=== PATIENT | male | born 1995 | race African-American/Black ===

== ENCOUNTER 2017-06-16 23:08 | Emergency (ER) | payer OTHER ==
[2017-06-16 23:24] VITALS: BP 140/79; PULSE 60; TEMP 98.2; BMI 26.6
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
[2017-06-17 01:33] LABS: BASOPHIL 0.7 % (0-2.0); EOSINOPHIL 2.9 % (0-4.5); MCH 29.1 pg (25.7-33.7); MCHC 33.7 g/dl (32.0-35.9); MEAN CELL VOLUME 86.2 fl (80-96); MEAN PLT VOLUME 8.5 fl (7.5-11.1); NEUTROPHILS 67.1 % (42.8-82.8); PLATELET COUNT 261 K/MM3 (134-434); RDW 13.3 % (11.9-15.9); WHITE BLOOD COUNT 5.3 K/mm3 (4.0-10.0)
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
[2017-06-17 02:03] LABS: ALBUMIN 3.8 g/dl (3.4-5.0); ALK PHOS 85 U/L (45-117); ANION GAP 7 (8-16); BILIRUBIN,TOTAL 0.7 mg/dL (0.2-1.0); CALCIUM 8.3 mg/dL (8.5-10.1); CO2 30 mmol/L (21-32); GLUCOSE,RANDOM 101 mg/dL (74-106); SGOT/AST 22 U/L (15-37); SGPT/ALT 60 U/L (12-78); TOT PROT 6.4 g/dl (6.4-8.2)
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
[2017-06-17] MEDS ORDERED: IBUPROFEN 400 MG TABLET (FP) PO ONE ×2 (02:44→02:51)
== END 2017-06-17 03:05 ==
LOC: JER 23:08
CPT/HCPCS: 36415; 70450-TC; 71250-TC; 72100-TC; 72125-TC; 72170-TC; 73030-TC-LT; 73562-TC-LT; 80053; 80307; 85025; 99285-25

== ENCOUNTER 2018-12-14 16:06 | Emergency (ER) | payer OTHER ==
[2018-12-14 16:23] VITALS: BP 134/70; BMI 26.6
--- NOTE | 2018-12-14 16:26 | PDOC ---
Rapid Medical Evaluation Chief Complaint: Cold Symptoms Medical Evaluation: Allergies Allergy/AdvReac Type Severity Reaction Status Date / Time No Known Allergies Allergy Verified 06/16/17 23:20 12/14/18 16:25 I have performed a brief in-person evaluation of this patient. The patient presents with a chief complaint of:fevers/ cough Pertinent physical exam findings: pain / moist cough/ fevers I have ordered the following: Influenza, given 1000mg tylenol The patient will proceed to the ED for further evaluation. 12/14/18 16:27 12/14/18 16:27 Discharge Disposition - Diagnosis Cough - Referrals - Patient Instructions - Post Discharge Activity
[2018-12-14] MEDS ORDERED: IBUPROFEN 600 MG TABLET (FP) PO ONE ×2 (16:39→16:58)
--- NOTE | 2018-12-14 16:39 | PDOC ---
History of Present Illness - General Chief Complaint: Cold Symptoms Stated Complaint: LIGHT HEADED FLASHES FEVER Time Seen by Provider: 12/14/18 16:29 History Source: Patient - History of Present Illness Initial Comments: 12/14/18 18:04 23-year-old male complaining of fever, cough, body aches, wheezing for 1 day. Denies nausea, vomiting, diarrhea, abdominal pain, ear pain. Patient reports that he has been taking asthma pump with minimal relief. Patient has a past medical history of asthma. Denies admission for asthma. Past History - Past History Allergies/Adverse Reactions: Allergies No Known Allergies Allergy (Verified 12/14/18 16:23) Home Medications: Ambulatory Orders Oseltamivir Phosphate [Tamiflu] 75 mg PO BID #10 capsule 12/14/18 - Social History Smoking Status: Never smoked Review of Systems - Review of Systems Able to Perform ROS?: Yes Is the patient limited Divehi proficient: No Constitutional: Yes: Fever HEENTM: Yes: Nose Congestion Respiratory: Yes: Cough, Wheezing Cardiac (ROS): No: Symptoms Reported, See HPI, Chest Pain, Edema, Irregular Heart Rate, Lightheadedness, Palpitations, Syncope, Chest Tightness, Other ABD/GI: No: Symptoms Reported, See HPI, Abdominal Distended, Abd. Pain w/ defecation, Blood Streaked Bowels, Constipated, Diarrhea, Difficulty Swallowing , Nausea, Poor Appetite, Poor Fluid Intake, Rectal Bleeding, Vomiting, Indigestion, Abdominal cramping, Tarry Stools, Other *Physical Exam - Vital Signs Last Vital Signs Temp Pulse Resp BP Pulse Ox 102.6 F H 103 H 16 134/70 100 12/14/18 16:20 12/14/18 16:20 12/14/18 16:20 12/14/18 16:20 12/14/18 16:20 - Physical Exam General Appearance: Yes: Appropriately Dressed Respiratory/Chest: positive: Wheezing Cardiovascular: positive: Tachycardia Gastrointestinal/Abdominal: positive: Normal Bowel Sounds, Soft. negative: Tender Musculoskeletal: positive: Normal Inspection Extremity: positive: Normal Capillary Refill, Normal Inspection, Normal Range of Motion Integumentary: positive: Normal Color, Dry, Warm Neurologic: positive: Fully Oriented, Alert, Normal Mood/Affect Moderate Sedation - Procedure Monitoring Vital Signs: Procedure Monitoring Vital Signs Temperature 102.6 F H 12/14/18 16:20 Pulse Rate 103 H 02/07/19 16:20 Respiratory Rate 16 12/14/18 16:20 Blood Pressure 134/70 12/14/18 16:20 O2 Sat by Pulse Oximetry (%) 100 12/14/18 16:20 Progress Note - Progress Note Progress Note: influenza A; asthma exacerbation P: duoneb decadron tamiflu supportive care *DC/Admit/Observation/Transfer Diagnosis at time of Disposition: Influenza A Asthma exacerbation Qualifiers: Asthma severity: mild Asthma persistence: persistent Qualified Code(s): J45.31 - Mild persistent asthma with (acute) exacerbation - Discharge Dispostion Disposition: HOME - Prescriptions Prescriptions: Oseltamivir Phosphate [Tamiflu] 75 mg PO BID #10 capsule - Referrals Referrals: Luis Eduardo Mccray [Primary Care Provider] - - Patient Instructions Printed Discharge Instructions: Influenza Additional Instructions: Drink plenty of fluids. Use albuterol every 4-6 hours as needed for cough and wheezing. Take Tamiflu as prescribed. Follow up with you doctor. Return to the emergency room if symptoms worsen. - Post Discharge Activity
[2018-12-14] MEDS ORDERED: DEXAMETHASONE 4 MG TABLET (FP) PO ONE ×2 (17:30→17:45)
[2018-12-14] MEDS ORDERED: ALBUTEROL SO4 2.5/IPRATROPIUM 0.5 INH SOL 3 ML VIAL.NEB. NEB ONE (17:32)
[2018-12-14] MEDS ORDERED: DEXAMETHASONE SOD PHOSPHATE 10 MG/1 ML VIAL ONE (17:32)
[2018-12-14] MEDS: ALBUTEROL SO4 2.5/IPRATROPIUM 0.5 INH SOL 3 ML VIAL.NEB. NEB SCH ×3 (17:35→18:20)
[2018-12-14 18:10] VITALS: PULSE 64; TEMP 98.7
== END 2018-12-14 18:21 | disposition home or self-care (01) ==
LOC: JERFT 16:06
DX: J09.X2 Influenza due to identified novel influenza A virus with other respiratory manifestations (principal); J45.31 Mild persistent asthma with (acute) exacerbation
CPT/HCPCS: 87804; 99281-25

== ENCOUNTER 2019-09-19 08:47 | Emergency (ER) | payer SELFPAY ==
[2019-09-19 08:52] VITALS: BP 120/60; PULSE 67; TEMP 98; BMI 28.8
[2019-09-19] MEDS ORDERED: predniSONE 20 MG TABLET (UD) PO ONE (09:00)
[2019-09-19] MEDS ORDERED: AZITHROMYCIN 500 MG TABLET PO ONE (09:02)
[2019-09-19] MEDS ORDERED: AZITHROMYCIN 250 MG TABLET ONE (09:19)
[2019-09-19] MEDS ORDERED: predniSONE 20 MG TABLET (UD) ONE (09:20)
[2019-09-19] MEDS ORDERED: ALBUTEROL SO4 2.5/IPRATROPIUM 0.5 INH SOL 3 ML VIAL.NEB. NEB ONE (09:20)
[2019-09-19] MEDS: ALBUTEROL SO4 2.5/IPRATROPIUM 0.5 INH SOL 3 ML VIAL.NEB. NEB SCH ×3 (09:32→10:16)
--- NOTE | 2019-09-19 10:07 | PDOC ---
History of Present Illness - General Chief Complaint: Wheezing Stated Complaint: ASTHMA, STD Testing Time Seen by Provider: 09/19/19 08:53 History Source: Patient Exam Limitations: No Limitations Past History - Past Medical History Allergies/Adverse Reactions: Allergies Allergy/AdvReac Type Severity Reaction Status Date / Time No Known Allergies Allergy Verified 09/19/19 08:52 Home Medications: Ambulatory Orders Albuterol 0.083% Nebulizer Melody [Ventolin 0.083% Nebulizer Soln -] 1 neb NEB Q4H PRN #30 vial 12/14/18 Oseltamivir Phosphate [Tamiflu] 75 mg PO BID #10 capsule 12/14/18 Albuterol 0.083% Nebulizer Melody [Ventolin 0.083% Nebulizer Soln -] 1 neb NEB Q4H PRN #30 vial 09/19/19 Prednisone [Deltasone] 40 mg PO DAILY #8 tablet 09/19/19 COPD: No - Psycho Social/Smoking Cessation Hx Smoking History: Never smoked Have you smoked in the past 12 months: No Information on smoking cessation initiated: No Hx Alcohol Use: No Drug/Substance Use Hx: No Substance Use Type: None *Physical Exam - Vital Signs Last Vital Signs Temp Pulse Resp BP Pulse Ox 98 F 67 18 120/60 100 09/19/19 08:50 09/19/19 08:50 09/19/19 08:50 09/19/19 08:50 09/19/19 08:50 - Physical Exam General Appearance: No: Apparent Distress Respiratory/Chest: positive: Wheezing. negative: Respiratory Distress, Accessory Muscle Use Cardiovascular: positive: Regular Rhythm, Regular Rate, S1, S2. negative: Murmur Integumentary: positive: Normal Color Neurologic: positive: Alert ED Treatment Course - Medications Given in the ED: ED Medications Discontinued Medications Generic Name Dose Route Start Last Admin Trade Name Freq PRN Reason Stop Dose Admin Albuterol/Ipratropium 1 amp 09/19/19 09:00 09/19/19 09:45 Duoneb - NEB 09/19/19 09:31 1 amp Q15M GUERA Administration Azithromycin 1,000 mg 09/19/19 09:02 09/19/19 09:32 Zithromax PO 09/19/19 09:03 1,000 mg ONCE ONE Administration Ceftriaxone Sodium 250 mg 09/19/19 09:02 09/19/19 09:32 Rocephin - IM 09/19/19 09:03 250 mg ONCE ONE Administration Prednisone 40 mg 09/19/19 09:00 09/19/19 09:32 Deltasone - PO 09/19/19 09:01 40 mg ONCE ONE Administration Medical Decision Making - Medical Decision Making 23 y/o M hx of asthma (never intubated) presents for asthma exacerbation x 2 days. States change in weather tends to exacerbate his asthma. Also mentions is running low on his asthma medication. +dry cough, wheezing and sob. Denies fever , congestion, rhinorrhea, abd pain, n/v, rash, other complaints. Also mentions he wants to get testing for chlamydia as his partner was found to be positive for chlamydia Mild asthma exacerbation - patient feeling better after receiving duonebs and steroids STD testing - G/C/Trich testing sent; patient treated for gonorrhea and chlamydia 09/19/19 10:01 Discharge - Discharge Information Problems reviewed: Yes Clinical Impression/Diagnosis: Possible exposure to STD Asthma Qualifiers: Asthma severity: mild Asthma persistence: unspecified Asthma complication type : with acute exacerbation Qualified Code(s): J45.901 - Unspecified asthma with ( acute) exacerbation Condition: Improved Disposition: HOME - Admission No - Additional Discharge Information Prescriptions: Albuterol 0.083% Nebulizer Melody [Ventolin 0.083% Nebulizer Soln -] 1 neb NEB Q4H PRN #30 vial PRN Reason: Shortness Of Breath Prednisone [Deltasone] 40 mg PO DAILY #8 tablet Prescription Drug Monitoring Program (I-STOP) results: I-STOP not reviewed - Follow up/Referral - Patient Discharge Instructions Patient Printed Discharge Instructions: DI for Asthma -- Adult Additional Instructions: Thank you for choosing [facility]. It was a pleasure taking care of you. You were treated for asthma Continue use of medication as needed for shortness of breath Take steroids as prescribed Follow-up with your doctor in 2 days for further management of your asthma You will be called back regarding results of STD testing Return to the Emergency Department if your symptoms worsen or persist or have other concerning symptoms. - Post Discharge Activity
== END 2019-09-19 10:16 | disposition home or self-care (01) ==
LOC: JERFT 08:47
PROC: 3E0F7GC Introduction of Other Therapeutic Substance into Respiratory Tract, Via Natural or Artificial Opening (ICD-10-PCS; principal; 2019-09-19)
PROC: 3E02329 Introduction of Other Anti-infective into Muscle, Percutaneous Approach (ICD-10-PCS; 2019-09-19)
DX: J45.901 Unspecified asthma with (acute) exacerbation (principal); Z11.3 Encounter for screening for infections with a predominantly sexual mode of transmission
CPT/HCPCS: 36415; 87491; 87591; 87661; 99282-25

== ENCOUNTER 2020-08-18 08:54 | Emergency (ER) | payer BC ==
--- OUTSIDE RECORDS SUMMARY | 2020-08-18 09:07 | XMS ---
:1995 Author Organization [facility] Support Name Relationship Address Phone SE Unavailable Unavailable Unavailable KENA EVANS MOTHER [address] [facility] [place] [id number] Re-disclosure Warning The records that you are about to access may contain information from federally- assisted alcohol or drug abuse programs. If such information is present, then the following federally mandated warning applies: This information has been disclosed to you from records protected by federal confidentiality rules (42 CFR part 2). The federal rules prohibit you from making any further disclosure of this information unless further disclosure is expressly permitted by the written consent of the person to whom it pertains or as otherwise permitted by 42 CFR part 2. A general authorization for the release of medical or other information is NOT sufficient for this purpose. The Federal rules restrict any use of the information to criminally investigate or prosecute any alcohol or drug abuse patient.The records that you are about to access may contain highly sensitive health information, the redisclosure of which is protected by Article 27-F of the [facility] Public Health law. If you continue you may haveaccess to information: Regarding HIV / AIDS; Provided by facilities licensed or operated by the [facility] Office of Mental Health; or Provided by the [facility] Office for People With Developmental Disabilities. If such information is present, then the following [facility] mandated warning applies: This information has been disclosed to you from confidential records which are protected by state law. State law prohibits you from making any further disclosure of this information without the specific written consent of the person to whom it pertains, or as otherwise permitted by law. Any unauthorized further disclosure in violation of state law may result in a fine or fdc sentence or both. A general authorization for the release of medical or other information is NOT sufficient authorization for further disclosure. Insurance Providers Payer name Policy type Policy ID Covered Covered green party's Policy P jovan / Coverage green party ID relationship to [place] [employer] type [place] [id number] SP [id number] SELF PAY SP INSURANCE [employer] [id number] SP [id number] HEALTHCARE PPO 4 Results ID Date Data Source [id number] 02/20/2020 12:00:00 AM EDT [facility] Name Value Range Interpretation Code Description Data Soledad rce(s) Supporting Document(s ) 2019-nCoV [place] RNA XXX SLOAN+probe- Imp This lab was ordered by [facility]-Hoang WILSON and reported by [employer] Procedure
[2020-08-18 09:35] VITALS: BP 126/57; PULSE 54; TEMP 97.5; BMI 28.8
[2020-08-18] MEDS: ALBUTEROL SO4 2.5/IPRATROPIUM 0.5 INH SOL 3 ML VIAL.NEB. NEB SCH ×4 (09:51→10:52)
[2020-08-18] MEDS ORDERED: ALBUTEROL SO4 2.5/IPRATROPIUM 0.5 INH SOL 3 ML VIAL.NEB. NEB ONE (10:15)
--- NOTE | 2020-08-18 10:45 | PDOC ---
History of Present Illness - General Chief Complaint: Asthma Stated Complaint: ASTHMA Time Seen by Provider: 08/18/20 09:23 History Source: Patient Exam Limitations: No Limitations - History of Present Illness Initial Comments: 08/18/20 10:43 HISTORY OF PRESENT ILLNESS: 24-year-old male past medical history of asthma presents emergency department for evaluation of wheezing since last night. Patient states he sees a physician approximately twice a year for asthma related complaints and is never been intubated. Patient states he ran out of his nebulizer treatments at home and feels that he just needs a couple of nebulizer treatments and will be ready for discharge. No recent travel or sick contacts. PAST MEDICAL HISTORY: See HPI SURGICAL HISTORY: Denies ALLERGIES: No known drug allergies REVIEW OF SYSTEMS General/Constitutional: Denies fever or chills. Denies weakness, weight change. HEENT: Denies change in vision. Denies ear pain or discharge. Denies sore throa t. Cardiovascular: Denies chest pain or shortness of breath. Respiratory: See HPI Gastrointestinal: Denies nausea, vomiting, diarrhea or constipation. Denies rectal bleeding. Genitourinary: Denies dysuria, frequency, or change in urination. Musculoskeletal: Denies joint or muscle swelling or pain. Denies neck or back pain. Skin and breasts: Denies rash or easy bruising. Neurologic: Denies headache, vertigo, loss of consciousness, or loss of sensation. Psychiatric: Denies depression or anxiety. Endocrine: Denies increased thirst. Denies abnormal weight change. Hematologic/Lymphatic: Denies anemia, easy bleeding, or history of blood clots. Allergic/Immunologic: Denies hives or skin allergy. Denies latex allergy. PHYSICAL EXAM General Appearance: Well-appearing, appropriately dressed. No apparent distress, no intoxication. HEENT: EOMI, PERRLA, normal ENT inspection, normal voice, TMs normal, pharynx normal. No conjunctival pallor. No photophobia, scleral icterus. Neck: Supple. Trachea midline. No tenderness, rigidity, carotid bruit, stridor, lymphadenopathy, or thyromegaly. Respiratory/Chest: Expiratory wheezes present in all lung mcdonald. Speaking full sentences. No accessory muscle use noted. Cardiovascular: RRR. S1, S2. No JVD, murmur, bradycardia, tachycardia. Integumentary: Appropriate color, dry, warm. No cyanosis, erythema, jaundice or rash Past History - Medical History Allergies/Adverse Reactions: Allergies Allergy/AdvReac Type Severity Reaction Status Date / Time No Known Allergies Allergy Verified 08/18/20 08:57 Home Medications: Ambulatory Orders Oseltamivir Phosphate [Tamiflu] 75 mg PO BID #10 capsule 12/14/18 Albuterol 0.083% Nebulizer Melody [Ventolin 0.083% Nebulizer Soln -] 1 neb NEB Q4H PRN #30 vial 09/19/19 predniSONE [Deltasone] 40 mg PO DAILY #8 tablet 09/19/19 Albuterol 0.083% Nebulizer Melody [Ventolin 0.083% Nebulizer Soln -] 1 neb NEB Q4H PRN #30 vial 08/18/20 Asthma: Yes COPD: No - Psycho-Social/Smoking History Smoking History: Never smoked Have you smoked in the past 12 months: No - Substance Abuse Hx (Audit-C & DAST Scrn) How often the patient has a drink containing alcohol: Never Score: In Men: 4 or > Positive; In Women: 3 or > Positive: 0 Screen Result (Pos requires Nsg. Audit-10AR): Negative In the last yr the pt used illegal drug/Rx for NonMed reason: No Score: Yes response is considered Positive: 0 Screen Result (Positive result requires Nsg. DAST-10): Negative *Physical Exam - Vital Signs Last Vital Signs Temp Pulse Resp BP Pulse Ox 97.5 F L 54 L 16 126/57 L 98 08/18/20 08:57 08/18/20 08:57 08/18/20 08:57 08/18/20 08:57 08/18/20 08:57 ED Treatment Course - Medications Given in the ED: ED Medications Discontinued Medications Generic Name Dose Route Start Last Admin Trade Name Freq PRN Reason Stop Dose Admin Albuterol/Ipratropium 1 amp 08/18/20 09:45 08/18/20 10:23 Erickb - NEB 08/18/20 10:31 1 amp Q15M GUERA Administration Medical Decision Making - Medical Decision Making 08/18/20 10:45 A/P: 24-year-old male with wheezing for 1 day Expiratory wheezes present in all lung mcdonald David's x4 Reassess 08/18/20 10:55 Repeat evaluation reveals clear lungs. Discharge home with prescriptions for albuterol nebulizers I discussed the physical exam findings, ancillary test results and final diagnoses with the patient. I answered all of the patient's questions. The patient was satisfied with the care received and felt comfortable with the discharge plan and treatment plan. The patient will call their primary care physician within 24 hours to arrange follow-up and will return to the Emergency Department with any new, persistent or worsening symptoms. Portions of this note have been documented using voice recognition software. As a result, errors may occur in the jetting machine operator process. Effort has been made to correct all grammatical and jetting machine operator error, but some may have been missed which may produce sporadic inaccurate jetting machine operator or nonsensical phrases. Discharge - Discharge Information Problems reviewed: Yes Clinical Impression/Diagnosis: Asthma exacerbation Qualifiers: Asthma severity: mild Asthma persistence: intermittent Qualified Code(s): J45.21 - Mild intermittent asthma with (acute) exacerbation Condition: Stable Disposition: HOME - Admission No - Additional Discharge Information Prescriptions: Albuterol 0.083% Nebulizer Melody [Ventolin 0.083% Nebulizer Soln -] 1 neb NEB Q4H PRN #30 vial PRN Reason: Wheezing - Follow up/Referral Referrals: Karan Garcia MD [Primary Care Provider] - - Patient Discharge Instructions Patient Printed Discharge Instructions: Asthma -- Adult Additional Instructions: Rest, drink lots of fluids: Teas, water, soups, Pedialyte Saltwater gargles Steamy showers/seem to face break up mucus Avoid contact with others until fevers and cough resolved Lots of handwashing and good hygiene Continue [id number] medications for symptomatic relief Tylenol or Motrin for fever and pain Continue albuterol nebulizers every 4-6 hours for the next 2 days then as needed for continued cough Followup with private physician in one to 2 days Return to emergency department / pediatric hospital for worsened symptoms, fevers, dehydration - Post Discharge Activity
== END 2020-08-18 11:08 | disposition home or self-care (01) ==
LOC: JER 08:54 → JERFT 08:54
PROC: 3E0F7GC Introduction of Other Therapeutic Substance into Respiratory Tract, Via Natural or Artificial Opening (ICD-10-PCS; principal; 2020-08-18)
DX: J45.21 Mild intermittent asthma with (acute) exacerbation (principal)
CPT/HCPCS: 99283-25

== ENCOUNTER 2023-02-14 21:27 | Emergency (ER) | payer OTHER ==
[2023-02-14 21:35] VITALS: BP 118/53; PULSE 79; RESP 18; TEMP 98; BMI 27.3
[2023-02-14] MEDS ORDERED: KETOROLAC TROMETHAMINE 30 MG/1 ML VIAL IM ONE (22:48)
[2023-02-14] MEDS ORDERED: KETOROLAC TROMETHAMINE 30 MG/1 ML VIAL ONE (22:58)
== END 2023-02-15 00:50 | disposition home or self-care (01) ==
LOC: JER 21:27 → JERFT 21:27 → JER 02-15 00:50
PROC: 3E0233Z Introduction of Anti-inflammatory into Muscle, Percutaneous Approach (ICD-10-PCS; principal; 2023-02-14)
DX: R68.84 Jaw pain (principal); W50.0XXA Accidental hit or strike by another person, initial encounter; Y93.61 Activity, american tackle football
CPT/HCPCS: 70486-TC; 99284-25

== ENCOUNTER 2023-07-16 23:05 | Emergency (ER) | payer OTHER ==
[2023-07-16 23:14] VITALS: BP 127/92; PULSE 92; RESP 18; TEMP 100.1; BMI 25.8
[2023-07-16] MEDS ORDERED: ACETAMINOPHEN 325 MG TABLET (FP) PO ONE (23:20)
[2023-07-16] MEDS ORDERED: ACETAMINOPHEN 325 MG TABLET (FP) ONE (23:25)
[2023-07-16] MEDS ORDERED: ALBUTEROL SO4 2.5/IPRATROPIUM 0.5 INH SOL 3 ML VIAL.NEB. NEB ONE (23:28)
[2023-07-16] MEDS ORDERED: DEXAMETHASONE 4 MG TABLET (FP) PO ONE (23:30)
[2023-07-16] MEDS: ALBUTEROL SO4 2.5/IPRATROPIUM 0.5 INH SOL 3 ML VIAL.NEB. NEB SCH ×3 (23:31→23:59)
[2023-07-16] MEDS ORDERED: DEXAMETHASONE 4 MG TABLET (FP) ONE (23:32)
== END 2023-07-17 00:16 | disposition home or self-care (01) ==
LOC: JER 23:05
PROC: 3E0F7GC Introduction of Other Therapeutic Substance into Respiratory Tract, Via Natural or Artificial Opening (ICD-10-PCS; principal; 2023-07-16)
DX: R51.9 Headache, unspecified (principal); R50.9 Fever, unspecified; R05.9 Cough, unspecified; J45.21 Mild intermittent asthma with (acute) exacerbation; Z20.822 Contact with and (suspected) exposure to COVID-19
CPT/HCPCS: 0241U-QW; 99283-25

== ENCOUNTER 2025-03-03 12:53 | Emergency (ER) | payer OTHER ==
[2025-03-03 13:00] VITALS: BP 122/64; PULSE 58; RESP 18; TEMP 97; BMI 25.8
[2025-03-03] MEDS ORDERED: ACETAMINOPHEN 500 MG TABLET (FP) ONE (13:50)
[2025-03-03] MEDS: ACETAMINOPHEN 500 MG TABLET (FP) PO ONE (13:57)
[2025-03-03] MEDS ORDERED: morphine CARPU-JECT 2 MG/1 ML DISP.SYRIN IVPUSH ONE (15:04)
[2025-03-03] MEDS: KETOROLAC TROMETHAMINE 30 MG/1 ML VIAL IM ONE (15:20)
[2025-03-03] MEDS ORDERED: KETOROLAC TROMETHAMINE 30 MG/1 ML VIAL ONE ×2 (15:23→15:38)
== END 2025-03-03 16:12 | disposition home or self-care (01) ==
LOC: JER 12:53
PROC: 3E0233Z Introduction of Anti-inflammatory into Muscle, Percutaneous Approach (ICD-10-PCS; principal; 2025-03-03)
DX: S40.911A Unspecified superficial injury of right shoulder, initial encounter (principal); W19.XXXA Unspecified fall, initial encounter; Y93.62 Activity, american flag or touch football
CPT/HCPCS: 73030-TC-RT-FY; 99284-25